=== PATIENT | female | born 1980 ===

== ENCOUNTER 2018-01-21 12:46 | Outpatient (CLI) | payer OTHER ==
[~2018-01-21 12:46] MED LIST: MORGIDOX100 MG PO; TYLENOL-CODEINE1 TAB PO
== END 2018-01-21 12:56 | disposition home or self-care (01) ==
LOC: RAD 12:46
DX: M25.552 Pain in left hip (principal)

== ENCOUNTER 2019-06-18 08:59 | Outpatient (CLI) | payer OTHER | END 2019-06-18 09:07 | disposition home or self-care (01) | LOC: SONOGRAMA 08:59 | DX: K82.8 Other specified diseases of gallbladder (principal) ==

== ENCOUNTER 2019-06-29 05:44 | Emergency (ER) | payer OTHER ==
[~2019-06-29] VITALS: Ht 170.2 cm; Wt 61.2 kg
[2019-06-29] MEDS ORDERED: ADVIL (05:57)
== END 2019-06-29 11:26 | disposition home or self-care (01) ==
LOC: ER 05:44
DX: N20.0 Calculus of kidney (principal)